=== PATIENT | female | born 1970 | race Hispanic/Latino ===

== ENCOUNTER 2017-08-20 16:13 | Outpatient (CLI) | payer BC | END 2017-08-20 16:14 | disposition home or self-care (01) | LOC: BICMAMMO 16:13 | PROVIDERS: ATTEND Family Medicine | DX: Z12.31 Encounter for screening mammogram for malignant neoplasm of breast (principal); Z80.3 Family history of malignant neoplasm of breast | CPT/HCPCS: 77063; 77067 ==

== ENCOUNTER 2018-09-28 07:59 | Outpatient (CLI) | payer BC ==
--- NOTE | 2018-09-28 08:50 | MMO ---
Bilateral MAMMO Bilat Screen [facility]. CLINICAL HISTORY: Patient is 47 years old and is seen for screening. The patient has the following family history of breast cancer: maternal aunt. The patient has no personal history of cancer. The patient has a history of left Excisional Biopsy in 2012 - benign, Ultrasound Guided Core Biopsy in September,, left Excisional Biopsy in and 2004 - benign, right Excisional Biopsy in 06/2003 - benign. VIEWS: The views performed were: bilateral craniocaudal with tomosynthesis and bilateral mediolateral oblique with tomosynthesis. FILMS COMPARED: The present examination has been compared to prior imaging studies performed at [facility] on 07/24/2014, 08/02/2015, 08/13/2016 and 08/20/2017. MAMMOGRAM FINDINGS: The breasts are extremely dense, which may lower the sensitivity of mammography. Finding 1: There are stable benign appearing calcifications seen in both breasts. Finding 2: There are multiple equal density nodules of varying size with obscured margins seen in both breasts. There are no suspicious masses, suspicious calcifications, or new areas of architectural distortion. IMPRESSION: THERE IS NO MAMMOGRAPHIC EVIDENCE OF MALIGNANCY. A ROUTINE FOLLOW-UP MAMMOGRAM IN 1 YEAR IS RECOMMENDED. THE RESULTS OF THIS EXAM WERE SENT TO THE PATIENT. ACR BI-RADS Category 2 - Benign finding MAMMOGRAPHY NOTE: 1. A negative mammogram report should not delay a biopsy if a dominant of clinically suspicious mass is present. 2. Approximately 10% to 15% of breast cancers are not detected by mammography. 3. Adenosis and dense breasts may obscure an underlying neoplasm. Reported by: LUBA MCKAY MD Electonically Signed: [id number]
== END 2018-09-28 08:00 | disposition home or self-care (01) ==
LOC: BICMAMMO 07:59
PROVIDERS: ATTEND Family Medicine
DX: Z12.31 Encounter for screening mammogram for malignant neoplasm of breast (principal); Z80.3 Family history of malignant neoplasm of breast; Z91.89 Other specified personal risk factors, not elsewhere classified
CPT/HCPCS: 77063; 77067

== ENCOUNTER 2019-11-02 09:48 | Day surgery (SDC) | payer BC ==
[2019-10-30 14:26] VITALS: BMI 36.4
[2019-11-02] MEDS ORDERED: Bupivacaine PF 0.5% 30 ML VIAL ONE (10:17)
[2019-11-02] MEDS ORDERED: Lidocaine 1% w/Epinephrine 1:100K 20 ML VIAL ONE (10:17)
[2019-11-02] MEDS ORDERED: Midazolam HCl 2 mg/2 ml Vial ONE (10:24)
[2019-11-02] MEDS ORDERED: Fentanyl 100 MCG/2 ML VIAL ONE (10:26)
[2019-11-02] MEDS ORDERED: PROPOFOL 200 MG/20 ML VIAL ONE (11:00)
[2019-11-02] MEDS ORDERED: Dexamethasone 20 MG/5 ML VIAL ONE (11:00)
[2019-11-02] MEDS ORDERED: Ondansetron PF 4 MG/2 ML Vial ONE (11:00)
[2019-11-02] MEDS ORDERED: Lidocaine 1% PF 5 ML VIAL ONE (11:00)
--- NOTE | 2019-11-02 22:40 | OP ---
DATE OF PROCEDURE: 11/02/2019 PREOPERATIVE DIAGNOSIS: Left breast mass. PROCEDURE PERFORMED: Excisional biopsy. INDICATIONS: A 48-year-old female who had a palpable mass in the left breast. Mammogram showed the tissue was very dense, so it is nondiagnostic. An ultrasound suggested a probable confluence of cysts. Aspiration was unsuccessful. FINDINGS: Very dense breast tissue with fibroadenoma and about a 1.5 cm cyst that was excised. DESCRIPTION OF PROCEDURE: After informed consent was obtained, the patient was taken to the operating room and given total IV anesthesia, placed in supine position. Left breast was prepped and draped in the usual fashion. Local anesthesia was infiltrated subcutaneously and deep. A curvilinear incision was performed. Subcu divided sharply. She had about 2 cm of subcutaneous fat and then very dense breast tissue with a palpable nodule. This was excised intact. It was marked with a white suture anterior, blue suture superior, and a black suture lateral, sent to Pathology for further analysis. Hemostasis achieved with electrocautery. Subcu reapproximated with interrupted 3-0 Vicryl. Skin closed with a running subcuticular 4-0 Rapide. Dermabond applied. The patient tolerated the procedure well, transferred to Recovery in good condition. Sponge and needle count verified correct x2. Job ID: [id number]
== END 2019-11-02 14:10 | disposition home or self-care (01) ==
LOC: SDC 09:48
PROVIDERS: ATTEND Surgery
PROC: 0HBU0ZZ Excision of Left Breast, Open Approach (ICD-10-PCS; principal; 2019-11-02)
DX: D24.2 Benign neoplasm of left breast (principal); N62 Hypertrophy of breast; N60.02 Solitary cyst of left breast; E78.5 Hyperlipidemia, unspecified; Z88.8 Allergy status to other drugs, medicaments and biological substances; Z91.018 Allergy to other foods; Z91.048 Other nonmedicinal substance allergy status; Z95.0 Presence of cardiac pacemaker
CPT/HCPCS: 88307; J0690; J1100; J2250; J2405; J2704; J3010; S0020

== ENCOUNTER 2021-06-11 07:53 | Outpatient (CLI) | payer BC | END 2021-06-11 07:54 | disposition home or self-care (01) | LOC: BICMAMMO 07:53 | PROVIDERS: ATTEND Family Medicine | DX: Z12.31 Encounter for screening mammogram for malignant neoplasm of breast (principal); Z80.3 Family history of malignant neoplasm of breast; Z91.89 Other specified personal risk factors, not elsewhere classified | CPT/HCPCS: 77063; 77067 ==

== ENCOUNTER 2021-12-19 08:38 | Outpatient (CLI) | payer BC | END 2021-12-19 08:39 | disposition home or self-care (01) | LOC: BICULT 08:38 | PROVIDERS: ATTEND Family Medicine | DX: R92.8 Other abnormal and inconclusive findings on diagnostic imaging of breast (principal); N63.20 Unspecified lump in the left breast, unspecified quadrant | CPT/HCPCS: G0279 ==

== ENCOUNTER 2022-01-19 11:30 | Outpatient (CLI) | payer BC ==
[~2022-01-19 11:30] MED LIST: Magnevist 469MG/ML 20 ML VIAL ONE
== END 2022-01-19 11:31 | disposition home or self-care (01) ==
LOC: MRI 11:30
PROVIDERS: ATTEND Neurological Surgery
DX: R41.9 Unspecified symptoms and signs involving cognitive functions and awareness (principal)
CPT/HCPCS: 70553

== ENCOUNTER 2023-10-06 07:51 | Outpatient (CLI) | payer BC | END 2023-10-06 07:52 | disposition home or self-care (01) | LOC: BICRAD 07:51 | PROVIDERS: ATTEND Family Medicine | DX: M25.561 Pain in right knee (principal) ==